=== PATIENT | female | born 1955 | race Caucasian/White ===

== ENCOUNTER → 2017-02-15 | Outpatient (CLI) | payer BC ==
--- NOTE | 2017-02-16 10:53 | MM ---
Reason for exam: screening (asymptomatic). Last mammogram was performed 12 years and 9 months ago. History: Patient is postmenopausal. Cyst aspiration of the right breast. Physical Findings: A clinical breast exam by your physician is recommended on an annual basis and results should be correlated with mammographic findings. MG Screening Mammo w CAD Bilateral CC and MLO view(s) were taken. Prior study comparison: May 13, 2004, bilateral screening mammogram. May 12, 2003, bilateral diagnostic mammogram. The breast tissue is heterogeneously dense. This may lower the sensitivity of mammography. Benign calcifications. There is no discrete abnormality. No significant changes when compared with prior studies. ASSESSMENT: Benign, BI-RAD 2 RECOMMENDATION: Routine screening mammogram of both breasts in 1 year.
== END | disposition home or self-care (01) ==
LOC: RADMAMWWP 10:46
PROVIDERS: ATTEND Internal Medicine
DX: Z12.31 Encounter for screening mammogram for malignant neoplasm of breast (principal)
CPT/HCPCS: 77067